=== PATIENT | female | born 1990 | race Caucasian/White ===

== ENCOUNTER → 2021-03-29 14:05 | Outpatient (CLI) | payer OTHER, MEDICAID, SELFPAY ==
--- NOTE | 2021-03-29 | DI.US.S_ITS ---
PROCEDURE: US OB >= 14 WEEKS FETUS INDICATIONS: 20 WEEK ANATOMY SCAN. OUTSIDE/PRIOR DATING DATA: Last menstrual period (LMP): 10/29/2020 . LMP-based estimated date of delivery (MELIA): 08/05/2021 . First dating scan (date and location): 03/29/2021 . Estimated date of delivery (MELIA) from first dating scan: 08/11/2021 . TECHNIQUE: Real-time scanning was performed of the fetus, with image documentation and biometric measurements. COMPARISON: None. FINDINGS: General: A single living intrauterine gestation is present. Presentation: Variable. Placenta: Placental position is posterior , without previa. Low lying placenta cannot be excluded. Amniotic fluid index: 6.4 cm, normal range is 5-24 cm. heart rate: 157 beats per minute. Maternal cervical canal: 4.9 cm long. Normal lower limit is 2.5 cm. biometrics: Biparietal diameter: 4.5 cm 19 weeks 5 days Head circumference: 18.5 cm 20 weeks 6 days Abdominal circumference: 15.2 cm 20 weeks 3 days Femur length: 3.8 cm 22 weeks 0 days Estimated gestational age from initial scan: not applicable. Composite gestational age from present scan: 20 weeks 5 days Estimated weight and percentile: 397 g 21st percentile Measurement variability for biometric dating: +/- 7 days from 14 weeks to 15 weeks 6 days gestation, +/- 10 days from 16 weeks to 21 weeks 6 days gestation, +/- 2 weeks from 22 weeks to 27 weeks 6 days gestation, +/- 3 weeks for 28 weeks gestation or later. weight reference: 4500 g or EFW >90/95% is considered macrosomia or large for gestational age. EFW <10% is small for gestational age. EFW 5% or less is considered intra-uterine growth restriction. Anatomic survey: Neuro: Ventricles are non-dilated at less than 10 mm. Cisterna magna is normal at 3-11 mm. Cerebellum is normal in size and morphology. Skull appears somewhat elongated although not well visualized. Nuchal skin fold: Normal at less than 6 mm between 14-21 weeks gestational age. Face: Nose and lips, facial profile are not well seen. Spine: No evidence for spina bifida. Heart: 4-chambered heart and normal ventricular outflow tracts are not well seen.. Diaphragm: Diaphragm is intact. Stomach: Left-sided stomach is present. Questionable echogenic foci within the stomach. Kidneys: No hydronephrosis. Normal is less than 5 mm in 2nd trimester, less than 7 mm in 3rd trimester. Cord: 3-vessel cord has orthotopic insertion. Bladder: Normal in size. Extremities: All 4 extremities identified. IMPRESSION: 1. Single live intrauterine with ultrasound gestational age today of 20 weeks 5 days. 2. Estimated weight at the 21st percentile. 3. Suboptimal visualization of the heart/outflow tracts, facial features. Recommend interval follow-up. 4. Echogenic focus within the stomach overall nonspecific. This could represent air. Interval follow-up of this region is recommended. 5. Questionable appearance of low lying placenta possibly secondary to overlying contraction. Recommend interval follow-up of this region. 6. Questionable appearance of the long gated skull which can be indicative of delete go cephaly. However, it is suspected to be secondary to position. Recommend interval follow-up for further evaluation. Dictated by: Josey Oliva M.D. on 03/29/2021 at 16:40 Approved by: Josey Oliva M.D. on 03/29/2021 at 16:44
== END ==
PROVIDERS: Referring Provider Nurse Practitioner Obstetrics & Gynecology; Visit Provider Nurse Practitioner Obstetrics & Gynecology
DX: Z36.89 Encounter for other specified antenatal screening (principal); Z3A.20 20 weeks gestation of pregnancy
CPT/HCPCS: 76811

== ENCOUNTER → 2021-05-12 10:53 | Outpatient (CLI) | payer OTHER, MEDICAID, SELFPAY ==
--- NOTE | 2021-05-12 10:56 | DI.US.S_ITS ---
PROCEDURE: US OB FOLLOW UP INDICATIONS: RE-EVALUATE OUTSIDE/PRIOR DATING DATA: Last menstrual period (LMP): 10/29/2020. LMP-based estimated date of delivery (MELIA): 08/05/2021. First dating scan (date and location): 03/29/2021. Estimated date of delivery (MELIA) from first dating scan: 08/11/2021. The calculations are made using the ultrasound MELIA of 08/11/2021. TECHNIQUE: Real-time scanning was performed of the fetus, with image documentation. Endovaginal scanning: Not performed COMPARISON: 03/29/2021. FINDINGS: A single living intrauterine gestation is present. Presentation: Vertex. Placenta: Placental position is posterior left fundal, without previa. No low lying placenta. heart rate: 136 beats per minute. Maternal cervical canal: 3.6 cm long. Normal lower limit is 2.5 cm. Estimated gestational age from initial scan: 27 weeks 0 days. face, nose and lips, stomach (no echogenic focus), RVOT, four-chamber heart, head are within normal limits. IMPRESSION: 1. Yepez living intrauterine at 27 weeks 0 days based on prior ultrasound dating. Vertex position. 2. Normal placenta. No low lying placenta. 3. face, nose and lips, head, and stomach are normal in appearance. Dictated by: Ronnell Marks M.D. on 05/12/2021 at 12:01 Approved by: Ronnell Marks M.D. on 05/12/2021 at 12:10
== END ==
PROVIDERS: Referring Provider Nurse Practitioner Obstetrics & Gynecology; Visit Provider Nurse Practitioner Obstetrics & Gynecology
DX: Z36.2 Encounter for other antenatal screening follow-up (principal); Z3A.27 27 weeks gestation of pregnancy
CPT/HCPCS: 76816

== ENCOUNTER → 2021-07-27 10:12 | Outpatient (ROUT) | payer OTHER, MEDICAID, SELFPAY | PROVIDERS: Visit Provider Nurse Practitioner Obstetrics & Gynecology | DX: Z36.85 Encounter for antenatal screening for Streptococcus B (principal); Z3A.36 36 weeks gestation of pregnancy | CPT/HCPCS: 87081 ==

== ENCOUNTER 2021-08-11 11:34 | Inpatient (IN) | payer OTHER, MEDICAID, SELFPAY ==
--- NOTE | 2021-08-11 12:03 | P.HPOB_ITS ---
OB HPI Date/Time Date of admission: 08/11/21 Date Patient Seen: 08/11/21 Time Patient Seen: 12:03 History of Present Condition Chief complaint: IN LABOR : 2 Para: 1,001 Estimated Date of Delivery: 08/12/21 Estimated Gestational Age (weeks): 39.6 Narrative: Vincent Faust is a 30 year old female @ [id number] by early US who presents for evaluation of labor. Cal all night, slowly progressing in frequency and intensity. +FM and lots of mucus discharge. No VB or LOF. Uncomplicated PN care w/ CNM. Desires low intervention . History of Present care: good care, initiated at week # (12), number of visits (9) and pounds weight gain (50) Dating criteria: based on 1st trimester US only Ultrasounds: normal mid trimester US Obstetrical complications: other (anemia) Medical complications: none Preadmission Labs Blood type: AB (+) positive -: Antibody screen: negative, GBS status: negative, HBsAG: negative, HIV: negative and RPR/VDLR: negative -: Chlamydia screen: not detected and Gonorrhea screen: not detected -: Rubella: immune and Varicella: immune HCT: 30.4 HCAB: negative Cell-free DNA: Negative, female 1 hr GTT: 81 Prior (ies) History: 08/05/2017: NSVB @ [id number], 30 hr labor, Epidural.2?.Male.8 lbs 5 oz, [facility] in [place] Evaluation Evaluation Baseline heart rate: 150 Variability: Moderate (11-25) monitor accelerations: Present Monitor Decelerations: Absent Contraction Frequency (minutes): 5 Uterine Contraction Intensity: Moderate Category of Tracing: Reactive Status: Category l Dilation (cm): 5 Effacement (%): 75 Dilation: >/=5 cm Effacement: 60-70% station: -2 Position of cervix: posterior Consistency: soft Strickland score: 8 PFSH Medical History (Updated 08/11/21 @ 12:14 by Gwendolyn Dawson CNM) Asthma Social History (Updated 08/11/21 @ 12:15 by Gwendolyn Dawson CNM) marital status: number of children: 1 household members: spouse and children lives independently: Yes caregiver/support person: No Smoking Status: Never smoker Meds Home Medications and Allergies Home Medications Medication Instructions Recorded Confirmed Type ferrous sulfate 325 mg (65 mg mg 08/11/21 History iron) tablet Review of Systems Review of Systems ROS: Yes unobtainable due to mental status OB Exam Narrative Exam Narrative: VS: BP 104/52, HR 88, T 36.6C Temporal Resp Effort & Inspection: normal respiratory effort Auscultation: clear to auscultation bilaterally Cardio Rate: regular rate Rhythm: regular rhythm Heart Sounds: S1 normal and S2 normal Presentation: vertex Assessment and Plan Assessment and Plan Assessment and Plan narrative: A: Term primipara Active labor No indication for GBS prophylaxis Cat I FHR P: Admit, routine orders. Labor support PRN. May switch to IA. Reassess in 4 hours or sooner, PRN.
[2021-08-11 12:45] LABS: Add Manual Diff / Slide Review NO; Basophils Absolute Auto 0 /uL (0-100); Basophils Percent Auto 0.3 % (0-2); Eosinophils Absolute Auto 100 /uL (0-450); Eosinophils Percent Auto 0.6 % (2-4); Hematocrit 34.6 % (36-46); Hemoglobin 11.5 g/dL (12.0-16.0); Lymphocytes Absolute Auto 1500 /uL (1100-4500); Lymphocytes Percent Auto 15.3 % (25-40); Mean Corpuscular HGB Conc 33.2 % (30-36); Mean Corpuscular Hemoglobin 30.2 PG (26-34); Mean Corpuscular Volume 90.9 fL (80-100); Monocytes Absolute Auto 1000 /uL (0-900); Monocytes Percent Auto 9.4 % (3-14); Neutrophils Absolute Auto 7500 /uL (1500-7000); Neutrophils Percent Auto 74.4 % (50-75); Platelet Count 135 X10^3/uL (150-400); Red Cell Distribution Width 15.5 % (11.6-14.8); White Blood Cell Count 10.1 X10^3/uL (4.5-11.0)
[2021-08-11 13:15] LABS: COVID19 -Nasal RAPID Negative (Negative)
--- NOTE | 2021-08-11 15:15 | PM.OBPNLAB ---
Date/Time Date Patient Seen: 08/11/21 Time Patient Seen: 15:15 Pain Control Pain control: other (Trying NO2, considering epidural) Comments: VS: BP 92/45mmHg, HR 95bpm Pelvic Exam Dilation (cm): 6 Effacement (%): 90 station: -2 Amniotic membrane status: Intact Contractions Contractions on admission: regular Monitor mode: External Pitocin rate (mU/min): 0 Contraction frequency (min): 3 Contraction duration (min): 1 Contraction pattern: Regular Contraction intensity: Moderate Status Heart Rate Baseline: 148 Comments: Remains reassuring by intermittent auscultation Assessment and Plan Assessment: active labor Plan: continuous present management Comments: Continue expectant management of labor. Epidural when request.
[2021-08-11] MEDS: LACTATED RINGERS 1,000 ML 100 ML IV ×3 (15:33→20:30)
--- NOTE | 2021-08-11 17:09 | PM.OBPNLAB ---
Date/Time Date Patient Seen: 08/11/21 Time Patient Seen: 17:00 Pain Control Pain control: tolerating well Comments: Anelys was unable to relax with contractions and received an epidural which has helped. Carreon placed w/ 14F catheter and draining clear, yellow urine. VS: BP 102/51mmHg, HR 96bpm, T 36.7C Temporal Pelvic Exam Dilation (cm): 6 Effacement (%): 90 station: -2 Amniotic membrane status: Intact Comments: ROT Contractions Monitor mode: External Pitocin rate (mU/min): 0 Contraction frequency (min): 3 Contraction duration (min): 1 Contraction pattern: Regular Contraction intensity: Moderate Status status: Category l Heart Rate Baseline: 135 Monitor Accelerations: Present Monitor Decelerations: Absent Monitor Variability: Moderate Assessment and Plan Assessment: active labor Plan: continuous present management Comments: Counseled on slow progress and ROT position. Recommend asymmetric hip positions w/ peanut ball and R exaggerated Sim's position w/ hip rocking. Offered AROm, but patient declines labor augmentation. Reassess in 4 hours or sooner, PRN.
--- NOTE | 2021-08-11 21:09 | PM.OBPNLAB ---
Date/Time Date Patient Seen: 08/11/21 Time Patient Seen: 21:00 Pain Control Pain control: tolerating well Comments: VS: 114/55mmhg, HR 86bpm, T 36.7C Temporal Pelvic Exam Dilation (cm): 8 Effacement (%): 90 station: -1 Amniotic membrane status: Leaking Comments: clear Contractions Monitor mode: External Pitocin rate (mU/min): 0 Contraction frequency (min): 2 Contraction duration (min): 1 Contraction pattern: Regular Contraction intensity: Moderate Status status: Category l Heart Rate Baseline: 150 Monitor Accelerations: Present Monitor Decelerations: Absent Monitor Variability: Moderate Assessment and Plan Assessment: active labor Plan: continuous present management Comments: Continue expectant management of labor. Reassess in 4 hours or sooner, PRN.
[2021-08-11] MEDS: CALCIUM CARBONATE 500 MG TAB 1000 MG PO (21:24)
[2021-08-11] MEDS: PANTOPRAZOLE DR 20 MG TABLET PO (21:52)
[2021-08-11 21:59] VITALS: BP 104/52
[2021-08-11] MEDS: CITRIC ACID/SODIUM CITRATE 15 ML SOLUTION 30 ML PO (22:54)
[2021-08-11] MEDS: FENT 2MCG/ML BUPIV 0.125% EPI 200 MCG/100 ML PLAST..BAG 6 MCG EPIDURAL (23:43)
[2021-08-12] MEDS: OXYTOCIN PREMIX 30 UNIT/500 ML PLAST..BAG 200 UNIT IV (00:10)
--- NOTE | 2021-08-12 00:30 | P.PCNOB_ITS ---
Labor & Delivery Delivery date: 08/12/21 Intrapartal Events: Deceleration Cervical ripening method: none Induction method: none Delivery monitor: external FHT and external uterine Route of delivery: Episiotomy description: None L&D Laceration Description: None Estimated blood loss (mL): 250 Anesthesia Type: Epidural Narrative: Anecarlos a struggled with significant upper abdominal discomfort despite adequate epidural level and medication for GERD. After rotating to her right side, she began to feel an urge to push. Rapid descent with spontaneous pushing. NSVB of a vigorous baby girl in MECCA position, sommersaulted through a single tight nuchal cord. The shoulders delivered without additional maneuvers. Vagina and perineum intact. was lifted to maternal abdomen by FOB. 30 units of pitocin in 500mL LR was started at 200mL/hr for AMTSL. After cessation of pulsation, the cord was double clamped by CNM and cut by FOB. Cord blood sample was collected. Gentle cord traction and single maternal push led to spontaneous, Schultze delivery of an apparently intact placenta, membranes and 3VC. Fundus immediately firm, but bleeding heavy. Pitocin was increased to 500mL/hr. Bleeding slowed with massage and pitocin. EBL 250mL. both mother and baby stable and skin to skin as I left the room. . [place] Baby 1: Infant gender: Female Presentation: vertex Position: Left Occiput Anterior Placenta delivery description: Spontaneous Cord Vessel Description: 3 Vessels, Nuchal Cord and Tight score (1 min): 8 score (5 min): 9 weight: 3.74 kg Plan for aftercare: Routine care
[2021-08-12 01:42] VITALS: TEMP 37.1
[2021-08-12] MEDS: KETOROLAC 30 MG/ML VIAL IV (01:42)
[2021-08-12 04:31] VITALS: TEMP 36.5
[2021-08-12] MEDS: ACETAMINOPHEN 325 MG TABLET 650 MG PO ×2 (04:31→11:47)
[2021-08-12] MEDS: IBUPROFEN 600 MG TABLET PO ×2 (09:19→17:05)
--- NOTE | 2021-08-12 13:29 | P.DS_ITS ---
Discharge Providers Provider Date of admission: 08/11/21 11:34 Discharge Date: 08/12/21 Primary care physician: Gwendolyn Dawson CNM Consults: 08/13/21 00:26 Consult to Structural Design Engineer Routine Comment: Discharge provider: Gwendolyn Dawson CNM Summary Hospital Course Date Patient Seen: 08/12/21 Time Patient Seen: 13:30 Diagnoses: o80 Hospital Course: Anelys is voiding, ambulating and independently. Lochia is scant, without clots. Tolerating a general diet. Pain is well controlled w/ PO medication. Eager for discharge to home. Peripartum Data Infant Delivery Method: Natural Vaginal Laceration Description: None Episiotomy description: None 1: Gender: Female Discharge Diagnosis (1) Encounter for full-term uncomplicated delivery: Status: Acute Status at Discharge Cognitive/behavioral status at discharge: oriented and calm Functional status at discharge: independent ambulation Overall status at discharge: patient is back to baseline Time Spent with Patient Time attestation: Total time spent providing and/or coordinating discharge services: Time spent: Less than 30 minutes Objective Labs Result Diagrams: 08/11/21 11:58 Labs: Laboratory Results - last 24 hr 08/11/21 11:58 Blood Type AB Positive Antibody Screen Negative Exam Vital Signs (past 8 hours): BP 115/55mmHg, HR 101bpm, RR 16/min, T 36.5C Temporal Other: Fundus firm @ U, lochia scant, perineum intact Discharge Plan Discharge Plan Patient Disposition: Home Discharge orders & Medications Prescriptions: Discontinued ferrous sulfate 325 mg (65 mg iron) Tablet 0RF Follow up/Referrals: Gwendolyn Dawson CNM [Primary Care Provider] - (Follow-up by Telehealth 08/26/21 @ 1100 Follow-up in office 09/22/21 @ 1100) Diet/Activity/Treatments Diet: Diet as Tolerated and Regular Activity: pelvic rest x 6 weeks Skin/Wound/Dressing Care Report to your healthcare provider any signs of infection, such as:: chills, fever, increased pain, unusual drainage and unusual redness Visit Report/Discharge Packet Instructions: Depression Discharge Data Primary Care Provider: Gwendolyn Dawson
== END 2021-08-12 18:20 | disposition home or self-care (01) | DRG 560 ==
PROVIDERS: Admitting Provider Nurse Practitioner Obstetrics & Gynecology; PCP Nurse Practitioner Obstetrics & Gynecology; Referring Provider Nurse Practitioner Obstetrics & Gynecology; Visit Provider Nurse Practitioner Obstetrics & Gynecology
DX: O99.02 Anemia complicating childbirth (principal); D64.9 Anemia, unspecified; Z3A.39 39 weeks gestation of pregnancy; Z37.0 Single live birth; O69.81X0 Labor and delivery complicated by cord around neck, without compression, not applicable or unspecified; O99.891 Other specified diseases and conditions complicating pregnancy; K21.9 Gastro-esophageal reflux disease without esophagitis; Z20.822 Contact with and (suspected) exposure to COVID-19; O76 Abnormality in fetal heart rate and rhythm complicating labor and delivery
CPT/HCPCS: 01967; 36415; 59025; 59050; 85025; 86850; 86900; 86901; 87635; C9803; G0379; J1885; J2590

== ENCOUNTER → 2025-05-20 14:34 | Outpatient (CLI) | payer OTHER, SELFPAY ==
--- NOTE | 2025-05-20 | DI.US.S_ITS ---
PROCEDURE: US OB >= 14 WEEKS FETUS INDICATIONS: ANATOMY OUTSIDE/PRIOR DATING DATA: The calculations are made using the working MELIA of 10/04/2025 TECHNIQUE: Real-time scanning was performed of the fetus, with image documentation and biometric measurements. Endovaginal scanning: Not performed COMPARISON: [facility], OB >= 14 WEEKS FETUS, 03/29/2021, 14:20. FINDINGS: General: A single living intrauterine gestation is present. Presentation: Variable. Placenta: Placental position is anterior, without previa. Amniotic fluid index: 15.8 cm, normal range is 5-24 cm. Single deepest vertical pocket is 6.0 cm. heart rate: 160 beats per minute. Maternal cervical canal: Closed and measures 5.4 cm long. Normal lower limit is 2.5 cm. biometrics: Biparietal diameter: 4.8 cm, 20 weeks, 3 days. Head circumference: 17.8 cm, 20 weeks, 2 days. Abdominal circumference: 15.3 cm, 20 weeks, 3 days. Femur length: 3.3 cm, 20 weeks, 3 days. Clinically estimated gestational age: 20 weeks, 3 days. Composite gestational age from present scan: 20 weeks, 3 days. Estimated weight and percentile: 354 g, 46%. Anatomic survey: Neuro: Ventricles are non-dilated at less than 10 mm. Cisterna magna is normal at 3-11 mm. Cerebellum is normal in size and morphology. Nuchal skin fold: Normal at less than 6 mm between 14-21 weeks gestational age. Face: Nose and lips, facial profile are normal. Spine: No evidence for spina bifida. Heart: 4-chambered heart is present, with normal ventricular outflow tracts. Diaphragm: Diaphragm is intact. Stomach: Left-sided stomach is present. Kidneys: No hydronephrosis. Normal is less than 5 mm in 2nd trimester, less than 7 mm in 3rd trimester. Cord: 3-vessel cord has orthotopic insertion. Bladder: Normal in size. Extremities: All 4 extremities identified. IMPRESSION: 1. Single live intra fetus in variable presentation. heart rate is 160 beats per minute. Normal TORO at 15.8 cm. Cervix is closed and measures 5.4 cm in length. 2. Normal growth. Estimated weight is at 46%. 3. Normal anatomic survey. We strive to produce accurate, complete, and clear reports of imaging services. To assist us in improving patient care, this report was composed using standard report templates and voice recognition software. Therefore, it may contain abnormal punctuation, insertions and/or omissions. Occasional wrong-word or sound-alike substitutions may occur. Though we review the report and make efforts to correct it, we do recommend that the report be read carefully in proper context to recognize any text inaccuracies. Dictated by: Lino Fofana M.D. on 05/20/2025 at 16:05 Approved by: Lino Fofana M.D. on 05/20/2025 at 16:07
== END ==
LOC: US 14:36
PROVIDERS: PCP Nurse Practitioner Obstetrics & Gynecology; Referring Provider Advanced Practice Midwife; Visit Provider Advanced Practice Midwife
DX: Z34.92 Encounter for supervision of normal pregnancy, unspecified, second trimester (principal); Z3A.20 20 weeks gestation of pregnancy
CPT/HCPCS: 76811